=== PATIENT | male | born 1995 | race Asian ===

== ENCOUNTER 2019-06-03 20:21 | Emergency (ER) | payer OTHER ==
[2019-06-03 20:30] VITALS: BP 148/90
[2019-06-03] MEDS ORDERED: Cephalexin CAP* 500 MG PO ONE (21:22)
--- NOTE | 2019-06-03 21:23 | ED ---
Skin Complaint - HPI Summary HPI Summary: 24 yo male presents to [facility] [place] ED with LEFT foot redness and ?bug bites. He tells me that he was wearing his sandals a lot today and about an hour ago noticed some pain and redness to the lateral aspect of his left foot. He is unsure what happened, but - based on the appearance - he thinks something bit him. He denies fever, chills. - History of Current Complaint Chief Complaint: EDExtremityLower Time Seen by Provider: 06/03/19 21:22 Stated Complaint: SPIDER BITES ON FEET PER PT Hx Obtained From: Patient Onset Severity: Mild Current Severity: Mild Pain Intensity: 4 Pain Scale Used: 0-10 Numeric - Allergy/Home Medications Allergies/Adverse Reactions: Allergies Allergy/AdvReac Type Severity Reaction Status Date / Time No Known Allergies Allergy Verified 06/03/19 20:28 PMH/Surg Hx/FS Hx/Imm Hx Endocrine/Hematology History: Denies: Hx Diabetes Cardiovascular History: Denies: Hx Cardiac Arrest Respiratory History: Denies: Hx Asthma, Hx Chronic Obstructive Pulmonary Disease (COPD) Musculoskeletal History: Denies: Hx Arthritis Neurological History: Denies: Hx CVA, Hx Headaches, Hx Migraine - Surgical History Surgical History: None Infectious Disease History: No Infectious Disease History: Denies: Traveled Outside the [place] in Last 30 Days - Family History Known Family History: Positive: Non-Contributory - Social History Lives: With Family Alcohol Use: None Substance Use Type: Reports: None Smoking Status (MU): Never Smoked Tobacco Review of Systems Constitutional: Negative Cardiovascular: Negative Respiratory: Negative Skin: Other - Left foot bug bite Neurological: Negative Psychological: Normal All Other Systems Reviewed And Are Negative: Yes Physical Exam - Summary Physical Exam Summary: GENERAL: NAD. WDWN. No pain distress. SKIN: LEFT FOOT: Lateral aspect with two small puncture wounds near 5th MTP with surrounding mild erythema. Mild TTP. No drainage, streaking, edema, fluctuance, or abscess. NECK: Supple. Nontender. No lymphadenopathy. CHEST: No accessory muscle use. Breathing comfortably and in no distress. CV: Pulses intact. Cap refill <2seconds NEURO: Alert. PSYCH: Age appropriate behavior. Triage Information Reviewed: Yes Vital Signs On Initial Exam: Initial Vitals Temp Pulse Resp BP Pulse Ox 98.1 F 79 16 148/90 100 06/03/19 20:26 06/03/19 20:26 06/03/19 20:26 06/03/19 20:26 06/03/19 20:26 Vital Signs Reviewed: Yes Diagnostics - Vital Signs Vital Signs Temp Pulse Resp BP Pulse Ox 06/03/19 20:26 98.1 F 79 16 148/90 100 - Laboratory Lab Statement: Any lab studies that have been ordered have been reviewed, and results considered in the medical decision making process. Course/Dx - Course Course Of Treatment: Suspect bug/spider bite left foot with mild cellulitis. Will rx for keflex and have him be rechecked if symptoms do not improve in 2-3 days. - Diagnoses Provider Diagnoses: Bug bite Discharge - Sign-Out/Discharge Documenting (check all that apply): Patient Departure Patient Received Moderate/Deep Sedation with Procedure: No - Discharge Plan Condition: Stable Disposition: HOME Prescriptions: Cephalexin CAP* [Keflex CAP*] 500 mg PO BID #10 cap Patient Education Materials: Insect Bite or Sting (ED) Referrals: No Primary Care Phys,NOPCP [Primary Care Provider] - Additional Instructions: If you develop a fever, shortness of breath, chest pain, new or worsening symptoms - please call your PCP or go to the ED immediately. Your blood pressure was high at todays visit. Please see your primary provider within 4 weeks for recheck and re-evaluation. - Billing Disposition and Condition Condition: STABLE Disposition: Home
== END 2019-06-03 21:39 | disposition home or self-care (01) ==
LOC: ED 20:21
DX: S90.862A Insect bite (nonvenomous), left foot, initial encounter (principal); L03.116 Cellulitis of left lower limb; W57.XXXA Bitten or stung by nonvenomous insect and other nonvenomous arthropods, initial encounter; Y92.9 Unspecified place or not applicable
CPT/HCPCS: 99281; A9270-GY